=== PATIENT | male | born 1985 | race Native Hawaiian/Other Pacific Islander ===

== ENCOUNTER 2016-10-15 14:22 | Emergency (ER) | payer OTHER ==
[~2016-10-15] VITALS: Ht 185.4 cm; Wt 77.1 kg
[2016-10-15 15:16] LABS: PLATELET COUNT 403 K/uL (142-355)
[2016-10-15 15:26] LABS: POTASSIUM 3.6 mmol/L (3.6-5.2); SODIUM 135 mmol/L (136-145)
== END 2016-10-15 18:15 | disposition home or self-care (01) ==
LOC: ED 14:22
DX: K52.9 Noninfective gastroenteritis and colitis, unspecified (principal)
CPT/HCPCS: 36415; 80053; 80307; 81000; 82272; 85027; 87015; 87045; 87205; 87328; 87329; 87899; 96360; 96361; 96374; 96375; 96376; 99284; G0479; J2405; J2550